=== PATIENT | male | born 1960 | race Caucasian/White ===

== ENCOUNTER 2016-12-18 13:34 | Outpatient (CLI) | payer OTHER | END 2016-12-18 13:35 | disposition home or self-care (01) | LOC: SC 13:34 | PROVIDERS: ATTEND Internal Medicine Pulmonary Disease | DX: G47.33 Obstructive sleep apnea (adult) (pediatric) (principal) | CPT/HCPCS: 99203; 99212 ==

== ENCOUNTER 2017-01-26 15:02 | Outpatient (CLI) | payer OTHER | END 2017-01-26 15:03 | disposition home or self-care (01) | LOC: SC 15:02 | PROVIDERS: ATTEND Internal Medicine Pulmonary Disease | DX: G47.33 Obstructive sleep apnea (adult) (pediatric) (principal) | CPT/HCPCS: 99212; 99213 ==

== ENCOUNTER 2017-12-08 09:48 | Day surgery (SDC) | payer OTHER ==
[2017-12-08] MEDS ORDERED: LACTATED RINGERS 1,000 ML IV ONE ×4 (09:57→17:38)
[2017-12-08] MEDS ORDERED: ceFAZolin 2 GM/50 ML 2 GM/50 ML BAG IV ONE (10:05)
[2017-12-08] MEDS ORDERED: BUPIVACAINE 0.5% PF 10 ML VIAL ONE (11:45)
[2017-12-08] MEDS ORDERED: BUPIVACAINE 0.5% PF 30 ML VIAL INFIL ONE (12:25)
[2017-12-08] MEDS ORDERED: KETOROLAC 30 MG/ML VIAL ONE (16:07)
--- NOTE | 2017-12-08 16:23 | OPERATIVE REPORT ---
Operative Report - General Procedure Date: 12/08/17 Planned Procedure: BILATERAL TEP inguinal herniorrhaphy Pre-Op Diagnosis: BILATERAL inguinal hernias Procedure Performed: BILATERAL TEP inguinal herniorrhaphy (fixing a direct and indirect RIGHT inguinal hernia and a direct LEFT inguinal hernia) Excision of a subcutaneous umbilical lipoma Post Op Diagnosis: LEFT indirect and direct inguinal hernia, RIGHT direct inguinal hernia, sub - Procedure Note Primary Surgeon: Jamal Hollis MD Anesthesia Provider: Evelia Hidalgo CRNA and the Jamal Baxter MD Anesthesia Technique: General ET tube, Local (30 mL 1/2% marcaine) IV Fluids (mL): 1,400 Estimated Blood Loss (mL): 20 Complications: None. - Other Other Information/Narrative: OPERATIVE DESCRIPTION/REPORT: After verbal and written informed consent was obtained detailing the risks of infection, bleeding requiring transfusion with its risks, nerve injury, and , and after I met with the patient confirming the surgery and the site of the surgery, the patient was brought to the operative suite and placed supine on the operating table. Great care was taken to avoid pressure points to prevent pressure necrosis or nerve injury. Monitoring devices were applied along with TEDs and pneumatic compressive stockings (to prevent DVT). The patient received preoperative antibiotics for surgical prophylaxis. Evelia Hidalgo and then Dr. Jamal Bxater sedated and induced general anesthesia and provided anesthesia care for the entirety of the case. The patient was prepped and draped in the usual sterile manner. With the patient draped my initials were clearly visible. A "time in" then confirmed that the patient was identified with 3 identifiers (name, date and medical record number), the history and physical was in the chart, the signed consent confirming the procedure was in the chart, the patient was in the correct position, the aforementioned prophylactic measures were in place or given, we had the correct personnel and equipment to complete the procedure and that anesthesia, surgery and nursing were given an opportunity to express any concerns. With the agreement of everyone in the room, we proceeded with the operation. A transverse skin incision was made below the umbilicus to a length of approximately 3 cm tracing his previous incision (umbilical herniorrhaphy). The incision was carried through the subcutaneous tissue. Bleeders were cauterized. There was clearly swelling in this area that initially I thought was due to a recurrent umbilical hernia but turned out to be a lipoma. This was left to be addressed at the end of the case. The right rectus sheath was identified and incised lateral to the midline. The preperitoneal space was then developed following insertion of a Spacemaker balloon, which was inflated under direct vision. Following removal of the Spacemaker balloon, a #10 trocar was placed in the preperitoneal space and the preperitoneal space was insufflated with CO2 to a steady state pressure of 12 mmHg. A 10 mm 30 degree laparoscope was inserted in the preperitoneal space. Two #5 trocars were placed 5 cm below the umbilicus and just medial to the epigastric vessels bilaterally under direct vision and without incident. Landmarks including symphysis pubis, right and left Adi ligaments and right and left inferior epigastric vessels were identified. Dissection was then continued lateral to the transverse abdominis muscle bilaterally. The left side was addressed first, The internal ring was then explored for the presence of the indirect hernia sac and none was found. Exploration of the medial space did showed a small medial defect suggesting a direct hernia. Attention was then directed to the right-hand side. Exploration of the medial space showed a rather large medial defect consistent with a direct inguinal hernia and consistent with the ultrasound finding of a direct inguinal hernia. Dissecting laterally the peritoneum was very thin and was entered as part of the dissection. This resulted in the abdomen filling with the insufflation dialysis and decreasing the operative space that I had to work with. As such I made a small stab incision supraumbilically and placed a Veress needle with return of air. This was left in place to drain the air of the from the abdomen. At this point, with the operative space smaller in the section much more complex I called in Dr. Perico Nava was kind enough to come and assist during the operation. It was clear in tracing the peritoneum that this went up into the internal ring and was associated with an indirect inguinal hernia. This was reduced carefully but despite the great care additional holes were made in the peritoneum. With the hernia reduced however it was easier to close these holes which were closed using a running 2-0 V-Loc stitch. With the peritoneum now essentially intact, and the indirect and direct defects delineated on the right, we were ready to place the mesh. A Covidien Progrip RIGHT anatomical mesh ([id number]#[id number], Ref#[id number], Use by 2020-06-11) was obtained and placed. The mesh covered the internal ring as well as the direct hernia site. Because of the large amount of fat and the fact that it was difficult to place the mesh properly, by the time I had the mesh in place its ability to adhere to tissue (because it had a large amount of fat already stuck to it) was compromised and I tacked the mesh in place medially only. Similarly a Covidien Progrip LEFT anatomical mesh ([id number]#[id number], Ref#[id number], Use by 2020-06-11) was placed on the left-hand side and similarly tacked medially only. A photograph was taken of the completed repair. 10 mL of 1/2% Marcaine was injected into the preperitoneal space and then remaining 20 mL at all three incisions. The preperitoneal space was then deflated and during the deflation the mesh was watched to ensure that it was sandwiched nicely in place and did not change position. All trocars were withdrawn. The defect in the rectus sheath was closed with a running 0 Vicryl suture. The subcutaneous lipoma at the umbilicus was excised. I did not send this for pathologic evaluation as it was clearly a benign lipoma. The skin incisions were closed with subcuticular 4-0 Monocryl suture. The prep was washed off and Dermabond was applied at all the incisions. At this point a time out was performed that confirmed that all the counts were correct, the procedure that was performed, the blood loss, the IV fluids administered, and the patients condition. Having tolerated the procedure well , the patient was subsequently extubated and taken to recovery room in good and stable condition.
[2017-12-08] MEDS ORDERED: ONDANSETRON 4 MG/2 ML VIAL ONE (16:39)
[2017-12-08] MEDS ORDERED: METOCLOPRAMIDE 10 MG/2 ML VIAL ONE (17:31)
[2017-12-08] MEDS ORDERED: oxyCOD/ACETAMIN 5 MG/325 MG TABLET PO PRN (17:59)
[2017-12-08] MEDS ORDERED: HYDROmorphone 0.5 MG/0.5 ML SYRINGE IVP PRN (18:00)
[2017-12-08] MEDS ORDERED: LACTATED RINGERS 1,000 ML IV SCH (18:00)
[2017-12-08] MEDS ORDERED: ONDANSETRON 4 MG/2 ML VIAL IVP PRN (18:04)
[2017-12-08] MEDS ORDERED: METOCLOPRAMIDE 10 MG/2 ML VIAL IVP PRN (18:05)
[2017-12-08 18:16] VITALS: BP 130/81
== END 2017-12-08 18:15 | disposition home or self-care (01) ==
LOC: SDS 09:48 → OBS 16:15 → UNDOADMOB 16:15 → SDS 18:15 → UNDODISOB 21:27
PROVIDERS: ATTEND Surgery
PROC: 0JB80ZZ Excision of Abdomen Subcutaneous Tissue and Fascia, Open Approach (ICD-10-PCS; 2017-12-08)
PROC: 0YUA4JZ Supplement Bilateral Inguinal Region with Synthetic Substitute, Percutaneous Endoscopic Approach (ICD-10-PCS; principal; 2017-12-08 11:00)
DX: K40.20 Bilateral inguinal hernia, without obstruction or gangrene, not specified as recurrent (principal); D17.1 Benign lipomatous neoplasm of skin and subcutaneous tissue of trunk; I10 Essential (primary) hypertension; E78.5 Hyperlipidemia, unspecified; K21.9 Gastro-esophageal reflux disease without esophagitis
CPT/HCPCS: 22902; 49650; C1781; J0690; J2765; J7120

== ENCOUNTER 2018-02-10 15:02 | Outpatient (CLI) | payer OTHER | END 2018-02-10 15:03 | disposition home or self-care (01) | LOC: SC 15:02 | PROVIDERS: ATTEND Nurse Practitioner Family | DX: G47.33 Obstructive sleep apnea (adult) (pediatric) (principal) | CPT/HCPCS: 99212; 99213 ==

== ENCOUNTER 2019-03-03 12:48 | Outpatient (CLI) | payer OTHER ==
--- NOTE | 2019-03-03 14:01 | SLEEP CARE CONSULTATION ---
Information from patient questionnaire entered by Evelia Velasquez. I have reviewed and concur with the information entered by Evelia Velasquez. This document represents the service I personally performed and the decisions made by me, Brittany Smith, RN, MSN, LIDDING MACHINE OPERATOR. History of Present Illness Previous diagnosis: Moderate, Obstructive Sleep Apnea-Hypopnea Syndrome AHI: 28.3 Reason for CPAP/BiPAP follow up: annual Equipment type: CPAP Equipment obtained from: [facility] Mask style: Nasal (Air Fit) Mask brand: Resmed Backup mask available: Yes Last cushion change: 6 months ago. CPAP Compliance Data - Data Reviewed with Patient Average duration of nightly device use: 6.05 Compliance rate %: 90.6 (180 days) Current pressure setting (cmH2O): 9 Humidity settin Average residual AHI: 1.1 Average large leak: 41 secs Subjective Missed days of use due to: reports: travel (using other CPAP) Patient concerns: reports: condensation in mask/hose (intermittently ). denies: aerophagia, mask discomfort, air blowing in eyes, mask leak noise, nasal congestion, dry mouth, nose, throat, epistaxis Observed to snore while using device: No Current pressure setting perceived as: comfortable On therapy, patient: reports: sleeping better, awakening more refreshed, being more awake and alert during the day, more rested overall. denies: drowsiness while driving Initial [place] Sleepiness Scale score: 0 Current [place] Sleepiness Scale score: 0 Allergies and Home Medications Known drug allergies: No Home medication list reviewed: Yes Allergy and home medication list: Nexium 20mg tab one daily Simvastatin 20mg tab one daily Lisinopril-HCTZ 20-12.5mg tab one daily Levothyroxine 150mcg tab one daily Tadalafil 10mg tab one daily prn Review of Systems Review of systems same as previous: Yes (no changes stated) Physical Exam Blood Pressure: 92/60 Cuff size: long Heart Rate: 72 O2 Saturation: 96 Height: 6 ft Weight (kg): 208 lb 12.8 oz Body Mass Index: 28.3 BMI Classification: Overweight Impression and Plan 1. Obstructive Sleep Apnea-Hypopnea Syndrome, moderate, with good treatment compliance and good apnea control. On CPAP therapy, the patient has better sleep quality and is more rested overall. For intermittent condensation, he was shown how his humidity setting is on classic and to change to system one which has less moisture. For future weight loss planned, he was advised how significant weight loss could reduce his CPAP pressure requirements and symptoms to report for adjustment. Since he is here for updating his equipment, I will scribe a prescription if needed to get process started. Patient's apnea severity and rationale for treatment to reduce apnea, improve sleep quality and reduce cardiovascular and cerebrovascular events was reviewed. I also reviewed the benefit of consistent device use of CPAP for hypertension, gastric reflux. Since apnea is more severe supine, if no electricity he is to avoid supine sleep by pillow positioning. * * Continue CPAP pressure at 9 cmH2O * Change humidity mode to system one. * Update CPAP supplies * Notify me if snoring with mask or feeling that the pressure is too much or too little * Attempt to lose weight * Return for follow up in 1 year, or sooner if concerns arise I spent 100% of this 25 minute visit face to face with the patient with greater than 50% of this was spent time counseling the patient and coordination of care.
[2019-03-03 14:02] VITALS: BP 92/60
== END 2019-03-03 12:49 | disposition home or self-care (01) ==
LOC: SC 12:48
PROVIDERS: ATTEND Nurse Practitioner Family
DX: G47.33 Obstructive sleep apnea (adult) (pediatric) (principal)
CPT/HCPCS: 99212; 99214

== ENCOUNTER 2019-09-02 13:40 | Outpatient (CLI) | payer OTHER ==
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
== END 2019-09-02 13:41 | disposition home or self-care (01) ==
LOC: DI 13:40
PROVIDERS: ATTEND Family Medicine
DX: M47.812 Spondylosis without myelopathy or radiculopathy, cervical region (principal); M50.321 Other cervical disc degeneration at C4-C5 level; M48.02 Spinal stenosis, cervical region
CPT/HCPCS: 72141

== ENCOUNTER 2020-03-21 15:50 | Outpatient (CLI) | payer OTHER ==
[2020-03-21 17:07] VITALS: BP 124/76
--- NOTE | 2020-03-21 17:07 | SLEEP CARE CONSULTATION ---
Information from patient questionnaire entered by Faby Mitchell. I have reviewed and concur with the information entered by Faby Mitchell. This document represents the service I personally performed and the decisions made by me, Brittany Smith, RN, MSN, SLASHER HAND. History of Present Illness Service Date and Time: 03/21/2020 1550 Previous diagnosis: Moderate, Obstructive Sleep Apnea-Hypopnea Syndrome AHI: 28.3 Reason for follow up: annual (Last seen 02/2019) Equipment type: CPAP Equipment obtained from: [facility] (getting supplies as needed) Mask style: Nasal Backup mask available: Yes (old mask ) Last cushion change: 2 weeks ago [facility] Type of Sleep Study: Polysomnography Subjective Patient concerns: denies: aerophagia, mask discomfort, air blowing in eyes, mask leak noise, condensation in mask/hose, nasal congestion, dry mouth, nose, throat, epistaxis, other Observed to snore while using device: No Current pressure setting perceived as: comfortable On therapy, patient: reports: sleeping better, awakening more refreshed, being more awake and alert during the day, more rested overall. denies: drowsiness while driving Initial [place] Sleepiness Scale score: 0 Current [place] Sleepiness Scale score: 1 Allergies and Home Medications Known drug allergies: No Home medication list reviewed: Yes (no changes ) Review of Systems Review of systems same as previous: Yes Physical Exam Blood Pressure: 124/76 Cuff size: long Heart Rate: 72 O2 Saturation: 98 Height: 6 ft Weight: 221 lb 9.6 oz Body Mass Index: 30.0 BMI Classification: Obese Impression and Plan 1. Obstructive Sleep Apnea-Hypopnea Syndrome, moderate , with unknown treatment compliance and unknown apnea control. His compliance card was empty so advised to bring his nailing machine feeder and card for download tomorrow. On CPAP therapy, the patient has better sleep quality and is more rested overall. Once I receive his compliance since the patients CPAP is over 5 years old and of reasonable use, the CPAP will be updated. A DWO prescription will be made. Compliance guidelines for new device and follow up discussed. Patient has gained weight. Currently patients BMI is 30 obesity class . Obesity increases the risk of apnea, CPAP pressure requirements and overall health risks especially cardiovascular and diabetes especially central obesity. Thus patient is advised to lose weight. Weight loss can be done with reducing portion size, reducing refined foods and balancing content with vegetables, fruit and protein. In addition tracking food intake will allow awareness of how to modify diet to achieve weight loss goals. Also eating more slowly will allow more awareness of food intake and enjoyment of food while assisting patient to modify intake at each meal. A diet consultation can be helpful in achieving optimal weight loss goals. The BMI chart was reviewed. The patient would like to reduce to 20 pounds bringing their BMI down to about 25. Patient encouraged to discuss their weight loss goals with their PCP and consider a referral to a forex trader. The patient's CPAP pressure range should accommodate some weight loss. Symptoms to report for additional pressure adjustment discussed. Patient's apnea severity and rationale for treatment to reduce apnea, improve sleep quality and reduce cardiovascular and cerebrovascular events was reviewed. I also reviewed the benefit of consistent device use of CPAP for hypertension. * Continue CPAP pressure at 9 cmH2O * Obtain compliance report * Update CPAP. * Notify me if snoring with mask or feeling that the pressure is too much or too little * Attempt to lose weight * Call this office if any problems using CPAP * Return for follow up determined by compliance , or sooner if concerns arise * * Addendum: 03-22-20 the patient was able to bring in his CPAP and card for download. * It showed thta he is using CPAP an average of 5 hours and 45 minutes nightly with 99.4% compliance of CPAP use more than 4 hours a night for the past 180 days. His apnea is well controlled with a residual AHI of 0.8. Mask leak average is 20 seconds. * * Thus I will update his CPAP. Since [facility] is not setting up CPAPs at this time, he will also be transferred to a new DME. Visit Type: In Office Time Spent with Patient (minutes): 20 Provider Statement: I spent 100% of the Face to Face Visit with the patient with greater than 50% spent counseling the patient and coordination of care.
== END 2020-03-21 15:51 | disposition home or self-care (01) ==
LOC: SC 15:50
PROVIDERS: ATTEND Nurse Practitioner Family
DX: G47.33 Obstructive sleep apnea (adult) (pediatric) (principal); E66.9 Obesity, unspecified; Z68.30 Body mass index [BMI] 30.0-30.9, adult
CPT/HCPCS: 99212; 99213

== ENCOUNTER 2021-06-18 12:32 | Outpatient (CLI) | payer OTHER ==
--- NOTE | 2021-06-18 13:17 | SLEEP CARE CONSULTATION ---
Information from patient questionnaire entered by Luke Lester MA. I have reviewed and concur with the information entered by Luke Lester MA. This document represents the service I personally performed and the decisions made by , Loree Mo ARNP. History of Present Illness Service Date and Time: 06/18/2021 1232 Previous diagnosis: Moderate, Obstructive Sleep Apnea-Hypopnea Syndrome AHI: 28.3 Reason for follow up: annual (LAST SEEN 03/2021) Equipment type: CPAP Equipment obtained from: [facility] (getting supplies as needed) Mask style: Nasal Backup mask available: Yes (old mask) Last cushion change: 3 months [facility] additional information: WALTER MURILLO was diagnosed to have moderate, AHI 28.3, obstructive sleep apnea- hypopnea syndrome and returned today for CPAP therapy annual follow-up. [facility] - [email or web address] Compliance Data - Data Reviewed with Patient Average duration of nightly device use: 5 HOURS 47 MINUTES Compliance rate %: 98 Current pressure setting (cmH2O): 9CM H20 Average residual AHI: 0.3 Central apnea: .1 Obstructive apnea: .1 Subjective Patient concerns: denies: aerophagia, mask discomfort, air blowing in eyes, mask leak noise, condensation in mask/hose, nasal congestion, dry mouth, nose, throat, epistaxis, other Observed to snore while using device: No Current pressure setting perceived as: comfortable On therapy, patient: reports: sleeping better, awakening more refreshed, being more awake and alert during the day, more rested overall. denies: drowsiness while driving Initial [place] Sleepiness Scale score: 0 Current [place] Sleepiness Scale score: 0 (2020) Allergies and Home Medications Home medication list reviewed: Yes (no changes) Review of Systems Review of systems same as previous: Yes (no changes) Physical Exam Vital signs obtained and entered by: Andres FONTANEZ Blood Pressure: 126/75 (right wrist) Heart Rate: 77 O2 Saturation: 96 (with mask) Height: 6 ft Weight: 210 lb (ifo from PT did not want to be weighed.) Body Mass Index: 28.5 BMI Classification: Overweight Impression and Plan 1. Obstructive Sleep Apnea-Hypopnea Syndrome, moderate, with good treatment compliance and excellent apnea control. On CPAP therapy, the patient has better sleep quality and is more rested overall. He is satisfied with CPAP therapy and has significant improvement of his sleep apnea. He has no issues with mask use. Patient's apnea severity and rationale for treatment to reduce apnea, improve s leep quality and reduce cardiovascular and cerebrovascular events was reviewed. I also reviewed the benefit of consistent device use of CPAP for hypertension. Patient was encouraged to lose weight for their overall health and to reduce apneas. He is trying to lose weight but has difficulty due to thyroid issues. * Continue auto CPAP pressure at 9 cmH2O * Notify me if snoring with mask or feeling that the pressure is too much or too little * Attempt to lose weight * Call this office if any problems using CPAP * Return for follow up in 1 year, or sooner if concerns arise Counseling Topics: Spare mask, Weight loss health impact Visit Type: In Office Time Spent with Patient (minutes): 14 Provider Statement: I spent 100% of the Face to Face Visit with the patient with greater than 50% spent counseling the patient and coordination of care.
[2021-06-18 13:18] VITALS: BP 126/75
== END 2021-06-18 12:33 | disposition home or self-care (01) ==
LOC: SC 12:32
PROVIDERS: ATTEND Nurse Practitioner Family
DX: G47.33 Obstructive sleep apnea (adult) (pediatric) (principal)
CPT/HCPCS: 99212

== ENCOUNTER 2022-09-20 11:24 | Emergency (ER) | payer OTHER ==
[2022-09-20 11:41] VITALS: BP 117/76
[2022-09-20] MEDS ORDERED: BUFFERED LIDOCAINE 10 ML SYRINGE SUBQ STA (12:04)
[2022-09-20] MEDS ORDERED: TETANUS/DIPHTHERIA/PERTUSSIS 0.5 ML SYRINGE IM ONE (12:43)
--- NOTE | 2022-09-20 12:50 | ED Physician Documentation ---
PD HPI UPPER EXT INJURY - Stated complaint Stated Complaint: R MIDDLE FINGER CUT - Chief complaint Chief Complaint: Laceration - History obtained from History obtained from: Patient - Additonal information Additional information: Ambidextrous gentleman not up-to-date on tetanus lacerated the left middle finger with a jewel bearing grinder at home just prior to arrival, mostly here wanting a tetanus shot. PD PAST MEDICAL HISTORY - Past Medical History Cardiovascular: Hypertension, High cholesterol Respiratory: Sleep apnea, CPAP use Endocrine/Autoimmune: HyPOthyroidism GI: GERD : None Psych: None Musculoskeletal: None Derm: None - Past Surgical History Past Surgical History: No General: Appendectomy - Present Medications Home Medications: Ambulatory Orders Medication Instructions Recorded Confirmed Esomeprazole Magnesium [Nexium] 20 mg PO DAILY 02/25/14 12/08/17 Levothyroxine [Synthroid] 150 mcg PO DAILY 02/25/14 12/08/17 Lisinopril/Hydrochlorothiazide 1 tab PO DAILY 02/25/14 12/08/17 [Lisinopril-Hctz 20-12.5 mg Tab] Simvastatin 20 mg PO DAILY 02/25/14 12/08/17 Tadalafil [Cialis] 10 mg PO ONCE PRN 02/25/14 12/08/17 - Allergies Allergies/Adverse Reactions: Allergies Allergy/AdvReac Type Severity Reaction Status Date / Time No Known Drug Allergies Allergy Verified 09/20/22 11:42 - Social History Does the pt smoke?: No Smoking Status: Never smoker Does the pt drink ETOH?: Yes Does the pt have substance abuse?: No PD ED PE NORMAL - Vitals Vital signs reviewed: Yes - General General: Alert and oriented X 3, No acute distress - Extremities Extremities: Other (There is a shallow gouge on the side of the distal left middle finger without distal neurovascular compromise or limited range of motion. There is no tenderness.) - Neuro Neuro: Alert and oriented X 3, Normal speech Results - Vitals Vitals: Vital Signs - 24 hr 09/20/22 11:39 Temperature 36.5 C Heart Rate 75 Respiratory 16 Rate Blood Pressure 117/76 O2 Saturation 98 Oxygen O2 Source Room air PD Medical Decision Making - ED course ED course: The wound was irrigated and dressed, it is not deep enough to need sutures. He was counseled on wound care and tetanus was updated. Departure - Departure Disposition: 01 Home, Self Care Clinical Impression: Abrasion of left middle finger Qualifiers: Encounter type: initial encounter Qualified Code(s): S60.413A - Abrasion of left middle finger, initial encounter Condition: Good Record reviewed to determine appropriate education?: Yes Instructions: ED Abrasion Comments: Note for your records that you received a Tdap shot today. For wound care you can wash it briefly with soap and water and then keep it covered with antibiotic ointment and a simple Band-Aid. Return for new or worsening symptoms.
== END 2022-09-20 13:00 | disposition home or self-care (01) ==
LOC: ED 11:24
DX: S60.413A Abrasion of left middle finger, initial encounter (principal); W29.8XXA Contact with other powered hand tools and household machinery, initial encounter; Y92.009 Unspecified place in unspecified non-institutional (private) residence as the place of occurrence of the external cause; I10 Essential (primary) hypertension; E03.9 Hypothyroidism, unspecified; E78.00 Pure hypercholesterolemia, unspecified; Z23 Encounter for immunization; Z79.899 Other long term (current) drug therapy
CPT/HCPCS: 90471; 99283

== ENCOUNTER 2023-07-31 14:54 | Outpatient (CLI) | payer OTHER ==
--- NOTE | 2023-07-31 15:15 | Sleep Patient Instructions ---
Sleep Center Visit Summary - Patient Visit Information Reason for Visit: Annual visit - Patient Instructions Additional Instructions: You will continue with CPAP therapy with pressure set at 9 cmH2O. A supply prescription will be updated with your DME. We encourage you to continue to try to lose weight. Please follow up with the sleep care office in 1 year. - Clinic Information Contact: [facility] [address] [place] [address] [email or web address] T: [phone]
--- NOTE | 2023-07-31 15:20 | SLEEP CARE CONSULTATION ---
Information from patient questionnaire entered by Beny Mcgregor. I have reviewed and concur with the information entered by Beny Mcgregor. This document represents the service I personally performed and the decisions made by me, Loree Mo ARNP. History of Present Illness Service Date and Time: 07/31/2023 1440 Previous diagnosis: Moderate, Obstructive Sleep Apnea-Hypopnea Syndrome AHI: 28.3 Reason for follow up: annual (LAST SEEN 06/2021) Equipment type: CPAP (RESMED Arisense 10; REMstar (checked, no issues); alternates) Equipment obtained from: [employer] (getting supplies as needed) Mask style: Nasal Mask brand: Resmed (AirFit N20, large cushion) Backup mask available: Yes Last cushion [facility]: [facility] every 6-7 months [facility] additional information: AWLTER MURILLO was diagnosed to have moderate, AHI 28.3, obstructive sleep apnea- hypopnea syndrome and returned today for CPAP therapy annual follow-up. Sleep [facility] - [facility] Compliance Data - Data Reviewed with Patient Average duration of nightly device use: 5 HRS 51 MINS Compliance rate %: 51 (07/23/22-07/22/23; overall compliance is at 91%) Current pressure setting (cmH2O): 9 Average residual AHI: 0.5 Central apnea: 0.1 Obstructive apnea: 0.2 Average large leak: 0.3 L/min Compliance data discussion: He uses another machine, REMstar, at his other home. He has 40.8% compliance with this machine, 5 hours 22 minutes, residual AHI 0.9 and average large leaks at 3 secs. His overall compliance is at 91%. Subjective Missed days of use due to: reports: travel Patient concerns: denies: aerophagia, mask discomfort, air blowing in eyes, mask leak noise, condensation in mask/hose, nasal congestion, dry mouth, nose, throat, epistaxis Observed to snore while using device: No Current pressure setting perceived as: comfortable On therapy, patient: reports: sleeping better, awakening more refreshed, being more awake and alert during the day, more rested overall. denies: drowsiness while driving Initial [place] Sleepiness Scale score: 0 Current [place] Sleepiness Scale score: 1 (07/31/23) Allergies and Home Medications Known drug allergies: No Drug allergies reviewed: Yes Home medication list reviewed: Yes (no changes) Allergy and home medication list: Allergies No Known Drug Allergies Allergy (Verified 07/29/23 15:37) Review of Systems Review of systems same as previous: Yes (NO CHANGE) Physical Exam Vital signs obtained and entered by: BENY Osorio MA Blood Pressure: 141/84 (RIGHT ARM) Cuff size: regular Heart Rate: 67 O2 Saturation: 97 Height: 6 ft Weight: 227 lb 11.2 oz Body Mass Index: 30.9 BMI Classification: Obese Impression and Plan 1. Obstructive Sleep Apnea-Hypopnea Syndrome, moderate, with good treatment compliance and good apnea control. On CPAP therapy, the patient has better sleep quality and is more rested overall. Patient has good compliance at 91% with using both of his machines. He uses 2 different machines at his 2 different homes that he lives between. One of the machines is a Newvemstar. He says he had it checked and when through registering his old device and was told there was no problems with it. He says it is still working well and we got downloaded therapy data. We will followup with him next year. Patient has significant improvement of their sleep apnea and is satisfied with current CPAP therapy. Patient denies problems with oral dryness, nasal congestion, epistaxis, skin irritation or aerophagia. Patient's apnea severity and rationale for treatment to reduce apnea, improve sleep quality and reduce cardiovascular and cerebrovascular events was reviewed. I also reviewed the benefit of consistent device use of CPAP for hypertension. 2. Obesity, unspecified. Currently patients BMI is 30.9. Obesity increases the risk of apnea, CPAP pressure requirements and overall health risks especially cardiovascular and diabetes. Thus patient is advised to lose weight. * Continue CPAP pressure at 9 cmH2O * Update supply prescription * Notify me if snoring with mask or feeling that the pressure is too much or too little * Attempt to lose weight * Call this office if any problems using CPAP * Return for follow up in 12 months, or sooner if concerns arise Counseling Topics: Weight loss health impact Prescriptions: Device supplies Follow up with Sleep Care in: 1 year Visit Type: In Office Time Spent with Patient (minutes): 20 Provider Statement: I spent 100% of the Face to Face Visit with the patient with greater than 50% spent counseling the patient and coordination of care.
[2023-07-31 16:23] VITALS: BP 141/84; O2SAT 97
== END 2023-07-31 14:55 | disposition home or self-care (01) ==
LOC: SC 14:54
PROVIDERS: ATTEND Nurse Practitioner Family
DX: G47.33 Obstructive sleep apnea (adult) (pediatric) (principal); E66.9 Obesity, unspecified; Z68.30 Body mass index [BMI] 30.0-30.9, adult
CPT/HCPCS: 99212; 99213

== ENCOUNTER 2023-10-22 08:33 | Day surgery (SDC) | payer OTHER ==
[2023-10-22] MEDS: LACTATED RINGERS 1,000 ML IV ONE ×2 (08:40→10:33)
--- NOTE | 2023-10-22 08:45 | ANESTHESIA ---
Pre-Anesthesia VS, & Labs - Diagnosis Lipoma, R chest, abdomen - Procedure excison of lipomas, L chest, abdomen Height: 6 ft Weight (kg): 99.4 kg Body Mass Index: 29.7 BMI Classification: Overweight - NPO >8 hours - Lab Results Lab results reviewed: Yes Home Medications and Allergies Esomeprazole Magnesium [Nexium] 20 mg PO DAILY 02/25/14 Levothyroxine [Synthroid] 150 mcg PO DAILY 02/25/14 Lisinopril/Hydrochlorothiazide [Lisinopril-Hctz 20-12.5 mg Tab] 1 tab PO DAILY 02/25/14 Simvastatin 20 mg PO DAILY 02/25/14 tadalafiL [Cialis] 10 mg PO ONCE PRN 02/25/14 Allergies/Adverse Reactions: Allergies Allergy/AdvReac Type Severity Reaction Status Date / Time No Known Drug Allergies Allergy Verified 07/31/23 14:56 Anes History & Medical History - Anesthetic History Anesthesia Complications: reports: No previous complications Family history of Anesthesia Complications: Denies Family history of Malignant Hyperthermia: Denies - Medical History Cardiovascular: reports: Hypertension, High cholesterol Pulmonary: reports: Sleep apnea, CPAP use Gastrointestinal: reports: GERD, Hiatal hernia Urinary: reports: None Musculoskeletal: reports: Chronic back pain Endocrine/Autoimmune: reports: HyPOthyroidism Skin: reports: None Smoking Status: Never smoker - Surgical History General: reports: Appendectomy, Colonoscopy Exam General: Alert, Oriented x3, Cooperative Dental: WNL Respiratory: Lungs clear, Normal breath sounds, No respiratory distress Cardiovascular: Regular rate (strip of ST vs AF RVR at admit. Patient has sosmce comvereted or returned to NSR @71bpm) Neurological: Normal speech Mental/Cognitive Status: Alert/Oriented X3, Normal for patient Cognitive Status: Within normal limits Plan Anesthesia Type: General Consent for Procedure(s) Verified and Reviewed: Yes Code Status: Attempt Resuscitation ASA classification: 2-Mild systemic disease Is this case an emergency?: No
[2023-10-22] MEDS ORDERED: LIDOCAINE-PF 2% 10 ML AMP SUBQ ONE (08:59)
[2023-10-22] MEDS ORDERED: PROPOFOL 500 MG/50 ML 500 MG/50 ML VIAL ONE (09:00)
[2023-10-22] MEDS ORDERED: MIDAZOLAM 2 MG/2 ML VIAL ONE (09:00)
[2023-10-22] MEDS ORDERED: LIDOCAINE 1%-EPI 1:100000 20 ML MDV ONE (09:10)
[2023-10-22] MEDS ORDERED: BUPIVACAINE 0.25% PF 10 ML VIAL ONE ×2 (09:10→09:20)
[2023-10-22] MEDS ORDERED: BUPIVACAINE 0.25% PF 30 ML VIAL ONE (09:19)
[2023-10-22] MEDS ORDERED: fentaNYL 100 MCG/2 ML VIAL ONE (09:36)
[2023-10-22] MEDS ORDERED: DEXAMETHASONE 4 MG/ML VIAL ONE (09:44)
[2023-10-22] MEDS ORDERED: ONDANSETRON 4 MG/2 ML VIAL ONE (09:44)
[2023-10-22] MEDS: BUPIVACAINE 0.25% PF 30 ML VIAL SUBQ ONE (10:16)
[2023-10-22] MEDS ORDERED: ONDANSETRON 4 MG/2 ML VIAL IVP PRN ×2 (10:35→10:48)
[2023-10-22] MEDS ORDERED: HYDROcod/ACETAM 5/325 MG TABLET PO PRN (10:35)
--- NOTE | 2023-10-22 10:39 | OPERATIVE REPORT ---
Operative Report - General Procedure Date: 10/22/23 Planned Procedure: excision subcutaneous 6 cm lipoma right lower neck/ supraclavicular area and excision 3 cm subcutaneous lipoma left upper abdomen Pre-Op Diagnosis: right supraclavicular 6 cm lipoma and left upper abdomen 3 cm lipoma Procedure Performed: excision 6 cm right supraclavicular lipoma and 5 cm intermediate repair excision 3 cm lipoma left upper abdomen and 3 cm intermediate repair Post Op Diagnosis: same - Procedure Note Primary Surgeon: cullen gomez Anesthesia Technique: General LMA, Local Pathology: benign/ not sent Estimated Blood Loss (mL): 2 Drain/Tube Type: Other (none) Indications: growing and painful lipomas Findings: as above Complications: none - Other Other Information/Narrative: The patient was prepped identified brought to the operating room and placed in supine position. Sequential compression devices were placed. Parenteral mask anesthesia was induced. He was prepped and draped in a sterile fashion. Antibiotics were not given. Local anesthetic was given. The right lower neck supraclavicular area 6 cm subcutaneous lipoma was first addressed. An incision was made in the direction of Kelly's lines measuring approximately 5 cm. The lipoma was removed in its entirety with combination of gentle retraction and cutting current cautery and Metzenbaums. Hemostasis was assured. Deep subcutaneous tissue was closed with a running 3 point 30 Vicryl suture. Buried interrupted subdermal 3-0 Vicryl sutures were then placed. Epidermis was closed with a running subcuticular 4-0 Monocryl. Dressing was applied. The left upper quadrant 3 cm subcutaneous lipoma was then addressed. It was removed in similar fashion. Deep subcutaneous tissue was reapproximated with interrupted 3-0 Vicryl suture. Buried interrupted subdermal 3-0 Vicryl suture was then placed epidermis was closed with a running 4-0 Monocryl subcuticular suture. Dressing applied. He tolerated the procedures well was awakened and brought to recovery in good condition.
[2023-10-22] MEDS ORDERED: MORPHINE 2 MG/ML CARPUJECT IVP PRN (10:48)
[2023-10-22] MEDS ORDERED: fentaNYL 100 MCG/2 ML VIAL IVP PRN (10:48)
[2023-10-22] MEDS ORDERED: ATROPINE ABBOJECT 1 MG/10 ML SYRINGE IVP PRN (10:48)
[2023-10-22] MEDS ORDERED: ePHEDrine 50 MG/ML VIAL IVP PRN (10:48)
[2023-10-22] MEDS ORDERED: NALOXONE 0.4 MG/ML VIAL IVP PRN (10:48)
[2023-10-22] MEDS ORDERED: METOCLOPRAMIDE 10 MG/2 ML VIAL IVP PRN (10:48)
[2023-10-22] MEDS ORDERED: HYDROmorphone 0.5 MG/0.5 ML SYRINGE IVP PRN (10:48)
[2023-10-22] MEDS ORDERED: LACTATED RINGERS 1,000 ML IV SCH (11:00)
[2023-10-22 11:10] VITALS: BP 125/84; O2SAT 100
--- NOTE | 2023-10-22 13:08 | ANESTHESIA POST OP EVALUATION ---
Anesthesia Post Eval - Post Anesthesia Eval Vitals: Last Vital Signs Temp 39.8 C H 10/22/23 10:49 Pulse 69 10/22/23 11:07 Resp 12 10/22/23 11:07 BP 125/84 H 10/22/23 11:07 Pulse Ox 100 10/22/23 11:07 O2 Flow Rate CV Function Including HR & BP: Stable Pain Control: Satisfactory Nausea & Vomiting: Negative Mental Status: Baseline Respiratory Status: Airway Patent Hydration Status: Satisfactory Anesthesia Complications: None
== END 2023-10-22 08:34 | disposition home or self-care (01) ==
LOC: SDS 08:33
PROVIDERS: ATTEND Surgery
DX: D17.1 Benign lipomatous neoplasm of skin and subcutaneous tissue of trunk (principal); D17.79 Benign lipomatous neoplasm of other sites; I10 Essential (primary) hypertension; G47.30 Sleep apnea, unspecified
CPT/HCPCS: 21552; 22903; J7120